=== PATIENT | male | born 2005 | race Caucasian/White ===

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

== ENCOUNTER → 2023-12-18 | Outpatient (CLI) | payer SELFPAY ==
[2023-12-22 12:12] LABS: HSV 1 SUBTYPE BY PCR Not Detected; HSV 2 SUBTYPE BY PCR Not Detected; HSV SUBTYPE SOURCE Plasma
[2023-12-22 12:40] LABS: HIV 1,2 COMBO ANTIGEN/ANTIBODY Negative (Negative)
[2023-12-22 15:48] LABS: APTIMA MEDIA TYPE Urine; C. TRACHOMATIS BY TMA Negative (Negative); N. GONORRHOEAE BY TMA Negative (Negative); SPECIMEN SOURCE Urine; T. VAGINALIS BY TMA Negative (Negative)
== END ==
LOC: LAB SHORT 18:45 → LAB 18:45
PROVIDERS: Student in an Organized Health Care Education/Training Program
DX: R39.89 Other symptoms and signs involving the genitourinary system (principal)
CPT/HCPCS: 86592; 87389; 87491; 87529; 87591; 87661